=== PATIENT | female | born 2000 | race Two or more races ===

== ENCOUNTER 2020-06-25 18:51 | Emergency (ER) | payer OTHER ==
[~2020-06-25] VITALS: Ht 160 cm; Wt 57.6 kg
[2020-06-25] MEDS ORDERED: Ketorolac 30mg Inj IM ONE (19:15)
[2020-06-25] MEDS ORDERED: Methocarbamol 500mg tab ORAL ONE (19:15)
[2020-06-25] MEDS ORDERED: ROBAXIN-750750 MG PO (19:17)
[2020-06-25] MEDS ORDERED: IBUPROFEN600 M1 ORAL (19:17)
[2020-06-25] MEDS ORDERED: LIDODERM700 M1 TOPIC (19:17)
--- NOTE | 2020-06-25 19:20 | NUR ---
pt aox3. c/o left lower back pain. states she fell in january 2010. pain worse today. denies n/v/d. denies pain on urination. pt lung sounds clear. respiration non labored. abdomen soft non distended. skin warm and dry. pt moving all extremties. v/s stable. pt in no distress.
--- NOTE | 2020-06-25 19:30 | NUR ---
urine collected and sent to lab
--- NOTE | 2020-06-25 19:36 | Emergency Room Report ---
History of Present Illness General Chief Complaint: Lower Back Pain or Injury Present Illness HPI 19-year-old female here with back pain. The patient slipped and fell 6 months a go and landed on her buttocks and has been suffering with left-sided lumbosacral back pain ever since. She said that she will have these pain flares once every month and will have to go to urgent cares for evaluation. No new injuries. Denies fevers, chills, midline pain, urinary or fecal retention or incontinence, IV drug use. 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 Review of Systems All Other Systems: negative except mentioned in HPI Physical Exam Vital Signs Date Time Temp Pulse Resp B/P (MAP) Pulse Ox O2 Delivery O2 Flow Rate FiO2 06/25/20 19:03 98.6 81 18 122/86 (98) Room Air Sp02 EP Interpretation: reviewed, normal General Appearance: no apparent distress, alert, non-toxic Head: normocephalic, atraumatic Eyes: bilateral eye normal inspection, bilateral eye PERRL ENT: hearing grossly normal, normal pharynx, no angioedema, normal voice Neck: full range of motion, supple/symm/no masses Respiratory: chest non-tender, lungs clear, normal breath sounds, speaking full sentences Cardiovascular #1: regular rate, rhythm, no edema Cardiovascular #2: 2+ carotid (R), 2+ carotid (L), 2+ radial (R), 2+ radial (L), 2+ dorsalis pedis (R), 2+ dorsalis pedis (L) Gastrointestinal: normal bowel sounds, non tender, soft, non-distended, no gua rding, no rebound Rectal: deferred Genitourinary: normal inspection, no CVA tenderness Musculoskeletal: back normal, normal range of motion, gait/station normal, other - Mild left-sided lumbosacral paraspinal tenderness on palpation. No midline spinal tenderness. No step-offs or deformities Neurologic: alert, motor strength/tone normal, oriented x3, sensory intact, responsive, speech normal Psychiatric: judgement/insight normal, memory normal, mood/affect normal, no suicidal/homicidal ideation Lymphatic: no adenopathy Medical Decision Making Diagnostic Impression: Primary Impression: Lumbosacral strain ER Course ddx: Musculoskeletal, compression fx, herniated sic, sciatica, spinal stenosis, epidural abscess, osteomyelitis, cauda equina, mass-tumor 19-year-old female here with chronic back pain. No recent injuries. She was given multiple pain medications in the emergency department. She felt slightly improved and was given prescriptions for these medicines. Given information follow-up with primary care. Did not have any red flag warning signs. Told to return with worsening symptoms. She expressed understanding and was discharged. Last Vital Signs Date Time Temp Pulse Resp B/P (MAP) Pulse Ox O2 Delivery O2 Flow Rate FiO2 06/25/20 19:03 98.6 81 18 122/86 (98) Room Air Scripts Ibuprofen* (MOTRIN*) 600 Mg Tablet 600 MG ORAL Q6H PRN for FOR PAIN, #20 TAB 0 Refills Prov: Mata Odom M.D. 06/25/20 Methocarbamol* (ROBAXIN-750*) 750 Mg Tablet 750 MG PO TID, #21 TAB 0 Refills Prov: Mata Odom M.D. 06/25/20 Lidocaine Patch* (Lidoderm Patch*) 1 Each Adh..patch 1 PATCH TOPIC DAILY, #7 PATCH 0 Refills Patch(es) may remain in place for up to 12 hours in any 24-hour period. Prov: Mata Odom M.D. 06/25/20 [facility]: [facility] Patient Instructions: Lumbosacral Strain Mata Odom M.D. Jun 25, 2020 19:36
--- NOTE | 2020-06-25 19:45 | NUR ---
pt medicated per mar.
--- NOTE | 2020-06-25 20:02 | NUR ---
pt aox3 given and understands discharge instructions. ambulatory out with steady gait
[2020-06-25 20:03] VITALS: BP 122/86
== END 2020-06-25 20:06 | disposition home or self-care (01) ==
LOC: EMR 19:25
DX: S39.012A Strain of muscle, fascia and tendon of lower back, initial encounter (principal); W01.0XXA Fall on same level from slipping, tripping and stumbling without subsequent striking against object, initial encounter; Y92.9 Unspecified place or not applicable
CPT/HCPCS: 81025; 96372; 99283; J1885